=== PATIENT | male | born 1990 | race Two or more races ===

== ENCOUNTER 2020-07-10 13:23 | Outpatient (CLI) | payer OTHER | END 2020-07-10 15:09 | disposition home or self-care (01) | LOC: OFIC 805 13:23 | PROVIDERS: ATTEND Otolaryngology Otology & Neurotology | DX: J34.2 Deviated nasal septum (principal); R09.81 Nasal congestion; J34.3 Hypertrophy of nasal turbinates ==

== ENCOUNTER 2022-07-26 21:54 | Outpatient (CLI) | payer OTHER | END 2022-07-26 23:00 | disposition home or self-care (01) | LOC: LAB 21:54 | DX: Z20.828 Contact with and (suspected) exposure to other viral communicable diseases (principal); Z20.818 Contact with and (suspected) exposure to other bacterial communicable diseases ==